=== PATIENT | female | born 1955 | race Caucasian/White ===

== ENCOUNTER 2022-11-15 08:15 | Outpatient (CLI) | payer MEDICARE ==
--- NOTE | 2022-11-15 09:29 | CT Report ---
PROCEDURE: ABDOMEN/PELVIS WO INDICATIONS: FLANK PAIN TECHNIQUE: Noncontrast 5 mm thick sections acquired from the diaphragms to the symphysis. 5 mm coronal and sagi ttal reformats were then performed. For radiation dose reduction, the following was used: automated exposure control, adjustment of mA and/or kV according to patient size. COMPARISON: None. FINDINGS: Image quality: Good Lower chest: Suspected thick scar is seen at the anterior portion of the right lower lobe. Other area s of suspected scarring and atelectasis are also present. No pleural effusions. There is a right lower lobe peripheral pulmonary nodule (4/6) measuring 7 x 6 mm. Mild hiatal hernia and nonspecific distal esophageal wall thickening. Solid organs: Liver is unremarkable. Gallbladder is unremarkable. No pathologic dilation of the bilia ry tree or pancreatic duct. No splenomegaly. No adrenal nodules. No hydronephrosis bilaterally. Renal stones are seen in the right kidney, measuring up to 3 to 4 mm. No calcified left renal stone. Vessels and lymph nodes: No pathologic adenopathy by size criteria. No abdominal aortic aneurysm. Bowel and peritoneum: No evidence of small bowel obstruction. No pathologic ascites. No drainable abs cess. Colonic diverticula, with likely chronic thickening and diverticular disease particularly in th e sigmoid colon. Please consider correlation with colonoscopy results. Body wall: Anterior abdominal wall postsurgical changes Pelvis: Bladder is unremarkable. Uterus is absent. Bones: No acute or suspicious osseous finding. There are degenerative changes. IMPRESSION: No acute abdominopelvic pathology. No evidence of left renal calculi or hydronephrosis. Small nonobst ructing stones in the right kidney are seen. Lung bases findings as described above, including a 6 to 7 mm right lower lobe pulmonary nodule. Cons ider [address] follow-up. Other findings as above. Reviewed by: Star Mcallister MD on 11/15/2022 9:28 AM PDT Approved by: Star Mcallister MD on 11/15/2022 9:28 AM PDT Station ID: [id number]
== END 2022-11-15 08:16 | disposition home or self-care (01) ==
LOC: DI 08:15
PROVIDERS: ATTEND Student in an Organized Health Care Education/Training Program
DX: R10.9 Unspecified abdominal pain (principal); N20.0 Calculus of kidney; R91.1 Solitary pulmonary nodule